=== PATIENT | female | born 1985 | race Caucasian/White ===

== ENCOUNTER 2019-03-23 02:29 | Emergency (ER) | payer OTHER ==
[2019-03-23 03:06] VITALS: TEMP 97.9; BMI 23.9
[2019-03-23] MEDS ORDERED: SODIUM CHLORIDE 1,000 ML IV STA (03:27)
--- NOTE | 2019-03-23 03:28 | PDOC ---
Attending Attestation - Resident Resident Name: Manuel Sarabia - ED Attending Attestation I have performed the following: I have examined & evaluated the patient, The case was reviewed & discussed with the resident, I agree w/resident's findings & plan - HPI HPI: 03/28/19 21:55 see resident hpi - Physicial Exam PE: 03/28/19 21:55 see resident exam - Medical Decision Making 03/28/19 21:55 33-year-old female with flank pain and dysuria Evaluation consistent with UTI, possible early pyelonephritis with no obstructing stones Patient improved after fluids and Toradol We will DC on antibiotics
[2019-03-23] MEDS ORDERED: ONDANSETRON 4 MG/2 ML VIAL IVPUSH ONE (03:33)
[2019-03-23] MEDS ORDERED: KETOROLAC TROMETHAMINE 30 MG/1 ML VIAL IVPUSH ONE (03:33)
--- NOTE | 2019-03-23 03:34 | PDOC ---
History of Present Illness - General Chief Complaint: Urinary Problem Stated Complaint: URINARY PROBLEM,BACK PAIN Time Seen by Provider: 03/23/19 03:26 History Source: Patient Exam Limitations: No Limitations, Language Barrier - History of Present Illness Initial Comments: Adore Fritz is a healthy 33 yo F w a strong family hx of kidney stones who presents to the [facility] er with dysuria, frequency, urgency, left flank pain, suprapubic abdominal pain, nausea and vomiting. She states her symptoms began on Wednesday with burning when she pees associated with nausea. This pain then progressed to her flank and she felt the need to be evaluated. She states her urine is now bright red and this is scaring her. Never formally been diagnosed with a kidney stone but has a strong family history. LMP: Patient has IUD Mirena in place PCP: Rosie Daniels PSH: None reported Social Hx: Denies smoking, drinking, or other substance usage Allergies: NKA, NKDA Past History - Past Medical History Allergies/Adverse Reactions: Allergies Allergy/AdvReac Type Severity Reaction Status Date / Time No Known Allergies Allergy Verified 03/23/19 03:04 Home Medications: Ambulatory Orders Ibuprofen 400 mg PO PRN 5 Days #10 tablet 03/23/19 Ondansetron HCl [Zofran] 4 mg PO PRN 10 Days #15 tablet 03/23/19 Sulfamethoxazole/Trimethoprim [Bactrim Ds -] 1 tab PO DAILY 14 Days #28 tablet 03/23/19 Tamsulosin HCl 0.4 mg PO PRN 4 Days #8 capsule 03/23/19 - Psycho Social/Smoking Cessation Hx Smoking History: Never smoked Information on smoking cessation initiated: No Hx Alcohol Use: No Drug/Substance Use Hx: No Review of Systems - Review of Systems Able to Perform ROS?: Yes Comments:: CONSTITUTIONAL: Absent: fever, no chills, no fatigue EYES: Absent: visual changes ENT: Absent: ear pain, no sore throat CARDIOVASCULAR: Absent: chest pain, no palpitations RESPIRATORY: Absent: cough, no SOB GI: Present: Abdominal pain, nausea, vomiting Absent: no constipation, no diarrhea GENITOURINARY: Present: Dysuria, frequency, urgency, hematuria MUSKULOSKELETAL: Present: Flank pain Absent: no arthralgia, no myalgia SKIN: Absent: rash NEURO: Absent: headache *Physical Exam - Vital Signs Last Vital Signs Temp Pulse Resp BP Pulse Ox 97.9 F 82 18 138/89 99 03/23/19 02:30 03/23/19 02:30 03/23/19 02:30 03/23/19 02:30 03/23/19 02:30 - Physical Exam GENERAL: Well-appearing, well-nourished. Mild distress. HEENT: Normocephalic, atraumatic. PERRL, EOM intact. CARDIOVASCULAR: Normal S1, S2. Regular rate and rhythm. PULMONARY: No evidence of respiratory distress. Lungs clear to auscultation bilaterally. No wheezing, rales or rhonchi. ABDOMEN: There is a significant amount of suprapubic abdominal TTP There is also a significant amount of Left CVA TTP. Minimal LLQ pain. Abdomen is soft. EXTREMITIES: Normal ROM in all four extremities. No gross deformities. SKIN: Warm, dry. No rash NEUROLOGICAL: No focal neurological deficits. URINE: Looks grossly red ED Treatment Course - LABORATORY CBC & Chemistry Diagram: 03/23/19 04:35 03/23/19 04:35 Medical Decision Making - Medical Decision Making Adore Fritz is a healthy 33 yo F w a strong family hx of kidney stones who presents to the [facility] er with dysuria, frequency, urgency, left flank pain, suprapubic abdominal pain, nausea and vomiting. She states her symptoms began on Wednesday with burning when she pees associated with nausea. This pain then progressed to her flank and she felt the need to be evaluated. She states her urine is now bright red and this is scaring her. Never formally been diagnosed with a kidney stone but has a strong family history. Vital Signs Temp Pulse Resp BP Pulse Ox 97.9 F 82 18 138/89 99 03/23/19 02:30 03/23/19 02:30 03/23/19 02:30 03/23/19 02:30 03/23/19 02:30 DDx IBNLT: UTI vs pylonephritis vs kidney stone vs hydronbephrosis vs infected ston vs anemia Plan: Labs, urine, Spiral CT, IV hydration, analgesia, anti-emetic, re-assess Labs: Leukocytosis with left shfit. Chem pending. Chem WNL - no KRISTIN Urine: Bright red in color. There is evidence of a urinary tract infection Spiral CT: Punctate non-obstructing left renal stone. Re-assessment: Patient feels much better in ED after zofran, toradol, and IV hydration. I have spoken with her in depth regarding the fact that she likely has a UTI complicated by Pylo aas well as a kidney stone which is probably infected. Given the fact she has no evidence of obstruction or hydro and that she is drinking and eating in the ED, she would like to go home and states she can follow up with her PCP today and tomorrow if need be. She states she will return to the ER if she is in too much pain or if anything else worsens. Disposition: Home with PCP fu - Bactrim 14 days for pyelonephritis - Zofran for nausea - Ibuprofen for pain control - Tamsulosin to help stone pass Discharge - Discharge Information Problems reviewed: Yes Clinical Impression/Diagnosis: Pyelonephritis, Kidney stone UTI (urinary tract infection) Qualifiers: Urinary tract infection type: acute cystitis Hematuria presence: with hematuria Qualified Code(s): N30.01 - Acute cystitis with hematuria Condition: Fair Disposition: HOME - Admission No - Additional Discharge Information Prescriptions: Ibuprofen 400 mg PO PRN 5 Days #10 tablet Ondansetron HCl [Zofran] 4 mg PO PRN 10 Days #15 tablet Sulfamethoxazole/Trimethoprim [Bactrim Ds -] 1 tab PO DAILY 14 Days #28 tablet Tamsulosin HCl 0.4 mg PO PRN 4 Days #8 capsule - Follow up/Referral Referrals: Rosie Daniels MD [Primary Care Provider] - Audi Holland MD [Staff Physician] - - Patient Discharge Instructions Patient Printed Discharge Instructions: Kidney Stones (Alternative Therapy), Urinary Tract Infection, Kidney Stones -- Adult, Kidney Infection Additional Instructions: You came into the ER with burning when you pee, blood in your urine, and back pain. You have a urinary tract infection, You have a kidney infection, and you have a kidney stone. We are sending an antibiotic to your pharmacy for you to take for your kiney infection - Bactrim. Take this medication twice a day for the next 14 days Kidney stones: We are sending you ibuprofen for pain and tamsulosin to help you pass the stone. We are also sending you zofran to help you with nausea. Please call up both your primary care doctor and the urologist we are referring you to in the next 24 to 48 hours to schedule follow up appointments. Come back to the ER immediately if your pain worsens, or anything else happens that is concerning. Thank you for coming to the [facility] ER. We hope you feel better spoon! Print Language: BULGARIAN - Post Discharge Activity
[2019-03-23] MEDS ORDERED: KETOROLAC TROMETHAMINE 30 MG/1 ML VIAL ONE (03:55)
[2019-03-23] MEDS ORDERED: ONDANSETRON 4 MG/2 ML VIAL ONE (03:55)
[2019-03-23 05:30] LABS: BASO % 0.8 % (0-2.0); EOS % 2.3 % (0-4.5); HEMATOCRIT 37.7 % (32.4-45.2); HEMOGLOBIN 12.8 GM/dL (10.7-15.3); LYMPH % 10.6 % (8-40); MCH 31.4 pg (25.7-33.7); MCHC 34.1 g/dl (32.0-36.0); MEAN CELL VOLUME 92.3 fl (80-96); MEAN PLT VOLUME 9.5 fl (7.5-11.1); MONO % 5.3 % (3.8-10.2); PLATELET COUNT 220 K/MM3 (134-434); RBC 4.09 M/mm3 (3.60-5.2); RDW 13.4 % (11.6-15.6); WHITE BLOOD COUNT 10.1 K/mm3 (4.0-10.0)
[2019-03-23 06:19] LABS: EPI CELLS 0.2 /HPF (0-5/HPF); HYALINE CASTS 0 /lpf (0-8); URINE APPEARANCE CLOUDY; URINE BACTERIA 99.8 /hpf (NEGATIVE); URINE BILIRUBIN NEGATIVE (NEGATIVE); URINE COLOR RED; URINE GLUCOSE (UA) NEGATIVE (NEGATIVE); URINE KETONE NEGATIVE (NEGATIVE); URINE LEUK ESTERASE 3+ (NEGATIVE); URINE NITRITE NEGATIVE (NEGATIVE); URINE PROTEIN 2+ (NEGATIVE); URINE UROBILINOGEN 0.2 mg/dL (0.2-1.0); URINE WBC 120 /hpf (0-5)
[2019-03-23] MEDS ORDERED: SULFAMETHOXAZOLE/TRIMETHOPRIM 800MG/160MG D.S. TABLET PO ONE (06:23)
[2019-03-23 06:26] LABS: URINE RBC 5 /hpf (0-4)
[2019-03-23 06:56] LABS: ALBUMIN 4.1 g/dl (3.4-5.0); BILIRUBIN,TOTAL 0.5 mg/dL (0.2-1); BLOOD UREA NITROGEN 13.1 mg/dL (7-18); CALCIUM 9.1 mg/dL (8.5-10.1); CREATININE 0.7 mg/dL (0.55-1.3); POTASSIUM 4.4 mmol/L (3.5-5.1); TOT PROT 7.2 g/dl (6.4-8.2)
[2019-03-23] MEDS ORDERED: SULFAMETHOXAZOLE/TRIMETHOPRIM 800MG/160MG D.S. TABLET ONE (07:05)
[2019-03-23 07:12] VITALS: BP 126/76; PULSE 86
--- NOTE | 2019-03-23 14:26 | EKG ---
Test Reason : Blood Pressure : / mmHG Vent. Rate : 068 BPM Atrial Rate : 068 BPM P-R Int : 152 ms QRS Dur : 078 ms QT Int : 384 ms P-R-T Axes : 043 072 051 degrees QTc Int : 408 ms NORMAL SINUS RHYTHM NORMAL ECG NO PREVIOUS ECGS AVAILABLE Confirmed by SULEMA LAY MD ([id number]) on 03/23/2019 2:25:39 PM Referred By: Confirmed By:SULEMA LAY MD
== END 2019-03-23 07:11 | disposition home or self-care (01) ==
LOC: JER 02:29
PROC: 3E0333Z Introduction of Anti-inflammatory into Peripheral Vein, Percutaneous Approach (ICD-10-PCS; principal; 2019-03-23)
PROC: 3E033GC Introduction of Other Therapeutic Substance into Peripheral Vein, Percutaneous Approach (ICD-10-PCS; 2019-03-23)
PROC: 3E0337Z Introduction of Electrolytic and Water Balance Substance into Peripheral Vein, Percutaneous Approach (ICD-10-PCS; 2019-03-23)
DX: N30.01 Acute cystitis with hematuria (principal); N12 Tubulo-interstitial nephritis, not specified as acute or chronic; N20.0 Calculus of kidney
CPT/HCPCS: 36415; 74176-TC; 80053; 81003; 84703; 85025; 87086; 87186; 93005; 93010; 99283-25; J7030

== ENCOUNTER 2019-10-02 04:32 | Day surgery (SDC) | payer OTHER ==
[2019-09-29 15:07] VITALS: BMI 23.8
[2019-10-02 08:50] LABS: HEMOGLOBIN 13.6 GM/dL (10.7-15.3); MCH 31.3 pg (25.7-33.7); MEAN CELL VOLUME 92.2 fl (80-96); PLATELET COUNT 203 K/MM3 (134-434); RBC 4.34 M/mm3 (3.60-5.2); RDW 13.3 % (11.6-15.6); WHITE BLOOD COUNT 5.6 K/mm3 (4.0-10.0)
[2019-10-02 09:05] LABS: INR 0.96 (0.83-1.09); PROTHROMBIN TIME (PATIENT) 11.3 SEC (9.7-13.0)
--- NOTE | 2019-10-02 09:39 | HP ---
Admitting History and Physical - Admission Chief Complaint: Desires Permanent Sterilization History of Present Illness: 34yo here for Sterilization, removal of Mirena IUD Declines continuing farther with LARC, wishes to have BTL Adamant she wants no future children (ages 13, 18, 21) History Source: Patient Limitations to Obtaining History: Language Barrier - Past Medical History DIRECTOR EDUCATIONAL RADIO: No: Alzheimer's, CVA, Dementia, Migraine, Multiple Sclerosis, Peripheral Neuropathy, Parkinson's, Seizure, Syncope, TIA, Vertigo, Other Cardiovascular: No: AFIB, Aneurysm, Aortic Insufficiency, Aortic Stenosis, CAD, CHF, Deep Vein Thrombosis, HTN, Hyperlipdemia, MT, Mitral Insufficiency, Mitral Stenosis, Murmur, Pulmonary Hypertension, Other Pulmonary: No: Asthma, Bronchitis, Cancer, COPD, O2 Dependent, Pneumonia, Previously Intubated, Pulmonary Embolus, Pulmonary Fibrosis, Sleep Apnea, Other Gastrointestinal: No: Ascites, Cancer, Constipation, Crohn's Disease, Diverticulitis, Diverticulosis, Esophageal Varices, Gastritis, GERD, GI Bleed, Hemorrhoids, Hiatal Hernia, Inflamatory Bowel Disease, Irritable Bowel Disease, Pancreatitis, Peptic Ulcer Disease, Ulcerative Colitis, Other Hepatobiliary: No: Cirrhosis, Cholelithiasis, Cholecystitis, Choledocholithiasis, Hepatitis A, Hepatitis B, Hepatitis C, Other Renal/: Yes: Renal Calculi ...LMP: 09/15/19 (Mirena IUD) ...LMP Comment: REGULAR ...: No ...: 3 ...Para: 3 Heme/Onc: No: Anemia, B12 Deficiency, Bleeding Disorder, Cancer, Current Chemotherapy, Current Radiation Therapy, Hemochromatosis, Hypercoaguable State, Myeloproliferative Synd, Sickle Cell Disease, Sickle Cell Trait, Thrombocytopenia, Other Infectious Disease: No: AIDS, C-Diff, Herpes Zoster, HIV, MRSA, STD's, Tuberculosis, VREF, Other Psych: No: Addictions, Anxiety, Bipolar, Depression, Panic, Psychosis, Schizophrenia, Other Musculoskeletal: No: Bursitis, Chronic low back pain, Hemiparesis, Hemiplegia, Osteoarthritis, Paraplegia, Other Rheumatology: No: Fibromyalgia, Gout, Lupus, Rheumatoid Arthritis, Sarcoidosis, Vasculitis, Other Endocrine: No: White [place]'s Disease, Eleni's Disease, Diabetes Insipidus, Diabetes Mellitus, Hyperparathyroidism, Hyperthyroidism, Hypothyroidism, Osteopenia, SIADH, Other Dermatology: No: Basal Cell, Cellulitis, Eczema, Melanoma, Psoriasis, Squamous Cell, Other - Past Surgical History Past Surgical History: Yes: - Smoking History Smoking history: Never smoked - Alcohol/Substance Use Hx Alcohol Use: No History of Substance Use: reports: None - Social History Usual Living Arrangement: Yes: With Spouse Do you think of yourself as: Straight/Heterosexual ADL: Independent History of Recent Travel: No Home Medications - Allergies Allergies/Adverse Reactions: Allergies Allergy/AdvReac Type Severity Reaction Status Date / Time No Known Allergies Allergy Verified 10/02/19 08:21 - Home Medications Home Medications: Ambulatory Orders Omeprazole 20 mg PO PRN PRN 09/29/19 Ibuprofen 600 mg PO Q6H PRN #30 tablet 10/02/19 Physical Examination Vital Signs: Vital Signs Temperature 98.4 F 10/02/19 08:24 Pulse Rate 82 10/02/19 08:24 Respiratory Rate 16 10/02/19 08:24 Blood Pressure 128/57 L 10/02/19 08:24 O2 Sat by Pulse Oximetry (%) 99 10/02/19 08:27 Constitutional: Yes: Well Nourished, No Distress, Calm Cardiovascular: Yes: WNL, Regular Rate and Rhythm Respiratory: Yes: WNL, Regular, CTA Bilaterally Gastrointestinal: Yes: WNL, Normal Bowel Sounds Edema: No Labs: CBC, BMP 10/02/19 08:06 Assessment/Plan 34yo here for LSC bilateral salpingectomy for tubal sterilization, removal of Mirena IUD NPO, IVFs MAURILIOs Debi Reviewed bleeding precautions with removal of her IUD Risk of procedure reviewed including bleeding, infection, injury to surrounding organs; permanent nature of procedure reviewed. All questions answered; consent signed Cyril Sol MD
[2019-10-02] MEDS ORDERED: PROPOFOL 20 ML ONE (10:14)
[2019-10-02] MEDS ORDERED: MIDAZOLAM HCL 2 MG/2 ML SINGLE DOSE VIAL ONE (10:14)
[2019-10-02] MEDS ORDERED: ROCURONIUM BROMIDE 100 MG/10 ML VIAL ONE (10:14)
[2019-10-02] MEDS ORDERED: fentaNYL CITRATE 250 MCG/5 ML VIAL ONE (10:14)
[2019-10-02] MEDS ORDERED: BUPIVACAINE HCL/PF 0.25% (2.5MG/ML) 10 ML VIAL ONE (10:29)
[2019-10-02] MEDS ORDERED: DEXAMETHASONE SOD PHOSPHATE 4 MG/1 ML VIAL ONE (10:56)
[2019-10-02] MEDS ORDERED: GLYCOPYRROLATE 0.2 MG/1 ML VIAL ONE (10:56)
[2019-10-02] MEDS ORDERED: NEOSTIGMINE METHYLSULFATE 0.5 MG/ML - 10 ML MDV ONE (10:56)
[2019-10-02] MEDS ORDERED: BUPIVACAINE HCL/PF 2.5 MG/ML - 30 ML VIAL IJ ONE ×2 (11:10)
[2019-10-02] MEDS ORDERED: KETOROLAC TROMETHAMINE 30 MG/1 ML VIAL ONE (11:55)
[2019-10-02] MEDS ORDERED: ACETAMINOPHEN INJECTION 100 ML IVPB ONE (11:56)
[2019-10-02] MEDS ORDERED: oxyCODONE HCL 5 MG TABLET PO PRN (12:01)
[2019-10-02] MEDS ORDERED: ONDANSETRON 4 MG/2 ML VIAL IVPUSH PRN (12:01)
[2019-10-02] MEDS ORDERED: KETOROLAC TROMETHAMINE 30 MG/1 ML VIAL IVPUSH ONE (12:02)
[2019-10-02] MEDS ORDERED: ACETAMINOPHEN 1000 MG/100 ML VIAL (NON FORMULARY) IVPB ONE (12:02)
[2019-10-02] MEDS ORDERED: LACTATED RINGERS SOLUTION 1,000 ML IV SCH (12:15)
--- NOTE | 2019-10-02 12:26 | OP ---
Operative Note - Note: Operative Date: 10/02/19 Pre-Operative Diagnosis: Desires Permanent Sterilization Operation: Laparoscopic Bilateral Salpingectomy, Lysis of Adhesions, Removal of Mirena IUD Findings: Filmy omental adhesions to the anterior abdominal wall; thick adhesions from the uterus fundus to the anterior abdominal wall, normal bilateral fallopian tubes and ovaries Normal vagina, normal cervix- IUD strings not visualized Surgeon: Margaret Sol Publishing Editor: Luis Allen Anesthesia: General Estimated Blood Loss (mls): 15 Drains, Volume Out (mls): 400 (clear urine) Operative Report Dictated: Yes
[2019-10-02 14:34] VITALS: BP 115/67; PULSE 66; TEMP 97.7
--- NOTE | 2019-10-02 20:55 | OP ---
DATE OF OPERATION: 10/02/2019 PREOPERATIVE DIAGNOSIS: Desires permanent sterilization. POSTOPERATIVE DIAGNOSIS: Desires permanent sterilization. PROCEDURE: Laparoscopic bilateral salpingectomy, lysis of adhesions, removal of Mirena intrauterine device. ANESTHESIA: General. SURGEON: Lizzie Kessler MD. TELESALES PROFESSIONAL: SAM Schmidt. ESTIMATED BLOOD LOSS: 15. INTRAVENOUS FLUIDS: 1 L. URINE OUTPUT: 400 mL of clear urine. FINDINGS: Filmy omental adhesions to the anterior abdominal wall, thick adhesions to the uterine fundus to the anterior abdominal wall, normal fallopian tubes and ovaries bilaterally. COMPLICATIONS: None. CONDITION: Stable to recovery room. DESCRIPTION OF PROCEDURE: After appropriate consents were signed, patient was taken to the operating room. General anesthesia was administered. She was placed in the lithotomy position. The abdomen was prepped and draped in the normal sterile fashion. Sterile Carrera catheter was inserted into the bladder. Timeout was performed confirming correct patient and procedure. 0.25% Marcaine was injected into the umbilicus. Using a scalpel, a 5-mm incision was made to accommodate the laparoscope, which was inserted under direct visualization. The abdomen was insufflated with gas. The patient was placed in Trendelenburg position. Marcaine was then injected into the right lower quadrant, left lower quadrant 5-mm ports were subsequently inserted under direct visualization without difficulty. The omental adhesions were taken down with the LigaSure device without difficulty. Patient's left fallopian tube was grasped, carried to the fimbriated edges and noted to be normal. Using subsequent bites along the mesosalpinx until the insertion to the uterus, the left fallopian tube was released with a LigaSure device and removed from the patient's left lower quadrant port. Attention was then paid to the patient's right fallopian tube which was grasped, carried through to the fimbriated end and noted to be normal. Subsequently the mesosalpinx along to the insertion to the uterus were taken with the LigaSure device until the fallopian tube was freed, and also then removed from the right lower quadrant port. Both sites were inspected and noted to be normal, hemostatic. The dense anterior abdominal wall adhesions was then taken down with the LigaSure device to allow for mobilization of the uterus. Both sites were noted to be hemostatic. Attention was then paid to removal of the IUD. Sterile speculum was inserted into the vagina with good visualization of the cervix. The anterior lip of the cervix was grasped with a single-toothed tenaculum. The cervix was then dilated with the Sharlene clamp and noted to be removed in its entirety. The tenaculum was then removed. The sites were hemostatic. The speculum was removed. All sponge, lap, needle counts were correct. Patient did not receive any antibiotics at the start of procedure. She was taken from the operating room to the recovery area in stable condition. LIZZIE KESSLER MD MG/[id number] MTDD
--- NOTE | 2019-10-03 17:44 | PATH ---
Surgical Pathology Report Patient Name: IGLESIA PENA [facility]. Rec. #: [id number] /Age/Gender: 1985 (Age: 34) / F Account: [id number] Location: [facility] SURGICAL Taken: 10/02/2019 Received: 10/02/2019 Reported: 10/03/2019 Physicians: Margaret Sol Specimen(s) Received A: LEFT FALLOPIAN TUBE B: RIGHT FALLOPIAN TUBE C: REMOVED IUD Clinical History Sterilization Final Diagnosis A. FALLOPIAN TUBE, LEFT, LAPAROSCOPIC SALPINGECTOMY: FALLOPIAN TUBE WITH FOCAL ENDOSALPINGOSIS (INCLUDING FIMBRIATED END AND FULL LUMINAL PORTION). B. FALLOPIAN TUBE, RIGHT, LAPAROSCOPIC SALPINGECTOMY: UNREMARKABLE FALLOPIAN TUBE (INCLUDING FIMBRIATED END AND FULL LUMINAL PORTION). C. REMOVED INTRAUTERINE DEVICE (IUD), REMOVAL: FOREIGN BODY MATERIAL CONSISTENT WITH INTRAUTERINE DEVICE (IUD). MACROSCOPIC DIAGNOSIS. Electronically Signed Madhavi Del Angel M.D. Gross Description A. Received in formalin labeled "left fallopian tube," is a 7 cm in length fimbriated fallopian tube. The outer surface is horne-pink and smooth. Sectioning reveals an unremarkable lumen. Metallurgical Engineering Technician sections are submitted in 2 cassettes as follows: 1-fimbria; 2-cross sections of fallopian tube. B. Received in formalin labeled "right fallopian tube," is a 6.5 cm in length fimbriated fallopian tube. The outer surface is horne-pink and smooth. Sectioning reveals an unremarkable lumen. Metallurgical Engineering Technician sections are submitted in 2 cassettes as follows: 1-fimbria; 2-cross sections of fallopian tube. C. Received fresh labeled "removed IUD," is a 3 cm in length white, T-shaped device with attached string, consistent with an IUD. No soft tissue is present. No sections are submitted, gross only. DL/10/02/2019 saudi/10/02/2019
== END 2019-10-02 14:15 | disposition home or self-care (01) ==
LOC: JASU-SURG 04:32
PROVIDERS: ATTEND Obstetrics & Gynecology
PROC: 0UPD7HZ Removal of Contraceptive Device from Uterus and Cervix, Via Natural or Artificial Opening (ICD-10-PCS; 2019-10-02)
PROC: 0UT74ZZ Resection of Bilateral Fallopian Tubes, Percutaneous Endoscopic Approach (ICD-10-PCS; principal; 2019-10-02 10:00)
DX: Z30.2 Encounter for sterilization (principal); Z30.432 Encounter for removal of intrauterine contraceptive device
CPT/HCPCS: 36415; 84703; 85027; 85610; 86850; 86900; 86901; 88300-TC; 88302-TC; 94760; J0131

== ENCOUNTER 2021-11-17 04:30 | Day surgery (SDC) | payer OTHER ==
[2021-11-13 14:55] VITALS: BMI 25.7
[2021-11-17] MEDS ORDERED: ONDANSETRON 4 MG/2 ML VIAL ONE (16:15)
[2021-11-17] MEDS ORDERED: KETOROLAC TROMETHAMINE 30 MG/1 ML VIAL ONE (16:15)
[2021-11-17 16:59] VITALS: RESP 18
[2021-11-17 17:45] VITALS: BP 99/59; PULSE 66; TEMP 98.3
== END 2021-11-17 17:46 | disposition home or self-care (01) ==
LOC: JASU-SURG 04:30
PROVIDERS: ATTEND Urology
PROC: 0TF3XZZ Fragmentation in Right Kidney Pelvis, External Approach (ICD-10-PCS; principal; 2021-11-17 16:00)
DX: N20.0 Calculus of kidney (principal)
CPT/HCPCS: 81025

== ENCOUNTER 2021-12-29 04:02 | Day surgery (SDC) | payer OTHER ==
[2021-12-25 16:27] VITALS: BMI 26.4
[2021-12-29] MEDS ORDERED: MIDAZOLAM HCL 2 MG/2 ML SINGLE DOSE VIAL ONE (17:26)
[2021-12-29] MEDS ORDERED: KETOROLAC TROMETHAMINE 30 MG/1 ML VIAL ONE (17:51)
[2021-12-29] MEDS ORDERED: ONDANSETRON 4 MG/2 ML VIAL ONE (17:51)
[2021-12-29 19:00] VITALS: RESP 16
[2021-12-29 19:08] VITALS: BP 105/58; PULSE 64; TEMP 98.6
== END 2021-12-29 19:30 | disposition home or self-care (01) ==
LOC: JASU-SURG 04:02
PROVIDERS: ATTEND Urology
PROC: 0TF4XZZ Fragmentation in Left Kidney Pelvis, External Approach (ICD-10-PCS; principal; 2021-12-29 16:00)
DX: N20.0 Calculus of kidney (principal)
CPT/HCPCS: 81025